=== PATIENT | female | born 1985 | race Caucasian/White ===

== ENCOUNTER 2018-03-14 13:50 | Emergency (ER) | payer BC ==
[2018-03-14] MEDS ORDERED: Lidocaine 1% 20 ML MDV INJECT ONE (14:19)
[2018-03-14] MEDS ORDERED: Diphtheria,Pertussis(Acell),Tetanus Vaccine 0.5 ML Syringe IM ONE (14:19)
--- NOTE | 2018-03-14 14:33 | EDM.PDOC ---
ED HPI GENERAL MEDICAL PROBLEM - General Chief Complaint: Laceration Stated Complaint: RIGHT POINTER FINGER CUT Time Seen by Provider: 03/14/18 13:53 Source of Information: Reports: Patient History Limitations: Reports: No Limitations - History of Present Illness INITIAL COMMENTS - FREE TEXT/NARRATIVE: HISTORY AND PHYSICAL: History of present illness: [Nely is a 32-year-old female here with finger laceration. She reports she was vacuuming out her car and must have cut her right pointer finger on something metal about 1 hour prior to arrival to the ED. She denies any fevers or chills. Tetanus status unknown. ] Review of systems: As per history of present illness and below otherwise all systems reviewed and negative. Past medical history: As per history of present illness and as reviewed below otherwise noncontributory. Surgical history: As per history of present illness and as reviewed below otherwise noncontributory. Social history: No reported history of drug or alcohol abuse. Family history: As per history of present illness and as reviewed below otherwise noncontributory. Physical exam: HEENT: Atraumatic, normocephalic, pupils reactive, negative for conjunctival pallor or scleral icterus Lungs: Clear to auscultation, breath sounds equal bilaterally, chest nontender. Extremities: 1.5 cm laceration just distal to the PIP joint of the right pointer finger on the dorsal aspect of the hand. negative for cords or calf pain. Neurovascular unremarkable. Neuro: Awake, alert, oriented. Cranial nerves II through XII unremarkable. Cerebellum unremarkable. Motor and sensory unremarkable throughout. Exam nonfocal. Notes: Diagnostics: ] Therapeutics: [tdap Laceration repair] Impression: [Laceration ] Plan: [#1 keep the area clean and dry as instructed #2 follow up for suture removal in 10-12 days #3 follow up with PCP #4 return to ED as needed as discussed] Definitive disposition and diagnosis as appropriate pending reevaluation and review of above. Right 2-Index finger Pain Score (Numeric/FACES): 5 - Related Data Allergies Allergy/AdvReac Type Severity Reaction Status Date / Time No Known Allergies Allergy Verified 03/14/18 14:16 Home Meds: Home Meds . [No Known Home Meds] 03/14/18 [History] Past Medical History - Past Health History Medical/Surgical History: Denies Medical/Surgical History - Infectious Disease History Infectious Disease History: Reports: None Social & Family History - Family History Family Medical History: Noncontributory - Tobacco Use Smoking Status *Q: Never Smoker - Caffeine Use Caffeine Use: Reports: Coffee, Soda - Recreational Drug Use Recreational Drug Use: No ED ROS GENERAL - Review of Systems Review Of Systems: ROS reveals no pertinent complaints other than HPI. ED EXAM, SKIN/RASH Exam: See Below (see dictation) ED SKIN PROCEDURES - Laceration/Wound Repair Right Finger Lac/Wound length In cm: 1.5 Appearance: Superficial Distal NVT: Neuro & Vascular Intact, No Tendon Injury Anesthetic Type: Local Local Anesthesia - Lidocaine (Xylocaine): 1% Plain Local Anesthetic Volume: 1cc Skin Prep: Saline Saline Irrigation (cc's): 250 Exploration/Debridement/Repair: Wound Explored, In a Bloodless Field, Explored to Base Closed with: Sutures Suture Size: 4-0 # of Sutures: 3 Suture Type: Prolene (procedure done by [employer] student under my supervision) , Interrupted, Simple Course - Vital Signs Last Recorded V/S: Last Vital Signs Temp 36.7 C 03/14/18 14:17 Pulse 90 03/14/18 14:17 Resp 16 03/14/18 14:17 BP 104/80 03/14/18 14:17 Pulse Ox 97 03/14/18 14:17 - Orders/Labs/Meds Orders: Active Orders 24 hr Category Date Time Status Vaccines to be Administered [RC] PER UNIT ROUTINE Care 03/14/18 14:19 Active Bacitracin [Bacitracin Oint 1 GM] Med 03/14/18 15:16 Once 1 dose TOP ONETIME ONE Medication Orders Bacitracin (Bacitracin Oint 1 Gm) 1 dose TOP ONETIME ONE Stop: 03/14/18 15:17 Meds: Medications Generic Name Dose Route Start Last Admin Trade Name Freq PRN Reason Stop Dose Admin Bacitracin 1 dose 03/14/18 15:16 Bacitracin Oint 1 Gm TOP 03/14/18 15:17 ONETIME ONE Discontinued Medications Generic Name Dose Route Start Last Admin Trade Name Freq PRN Reason Stop Dose Admin Diphtheria/Tetanus/Acell Pertussis 0.5 ml 03/14/18 14:19 03/14/18 14:36 Adacel IM 03/14/18 14:20 0.5 ml .ONCE ONE Administration Lidocaine HCl Confirm 03/14/18 14:26 03/14/18 14:35 Xylocaine-Mpf 1% Administered 03/14/18 14:27 Not Given Dose 5 mls @ as directed .ROUTE .STK-MED ONE Lidocaine HCl 20 ml 03/14/18 14:19 03/14/18 14:35 Xylocaine 1% INJECT 03/14/18 14:20 Not Given ONETIME ONE Lidocaine HCl 5 ml 03/14/18 14:34 03/14/18 14:36 Xylocaine-Mpf 1% INJECT 03/14/18 14:35 5 ml ONETIME ONE Administration Departure - Departure Time of Disposition: 15:20 Disposition: Home, Self-Care 01 Condition: Good Clinical Impression: Laceration - Discharge Information Referrals: Jg Carey MD [Primary Care Provider] - Forms: ED Department Discharge Additional Instructions: The following information is given to patients seen in the emergency department who are being discharged to home. This information is to outline your options for follow-up care. We provide all patients seen in our emergency department with a follow-up referral. The need for follow-up, as well as the timing and circumstances, are variable depending upon the specifics of your emergency department visit. If you don't have a primary care physician on staff, we will provide you with a referral. We always advise you to contact your personal physician following an emergency department visit to inform them of the circumstance of the visit and for follow-up with them and/or the need for any referrals to a consulting specialist. The emergency department will also refer you to a specialist when appropriate. This referral assures that you have the opportunity for follow-up care with a specialist. All of these measure are taken in an effort to provide you with optimal care, which includes your follow-up. Under all circumstances we always encourage you to contact your private physician who remains a resource for coordinating your care. When calling for follow-up care, please make the office aware that this follow-up is from your recent emergency room visit. If for any reason you are refused follow-up, please contact the [facility] Department at and asked to speak to the emergency department charge nurse. [facility] [address] [place] [phone] #1 keep the area clean and dry as instructed #2 follow up for suture removal in 10-12 days #3 follow up with PCP #4 return to ED as needed as discussed - My Orders Last 24 Hours: My Active Orders 03/14/18 15:16 Bacitracin [Bacitracin Oint 1 GM] 1 dose TOP ONETIME ONE - Assessment/Plan Last 24 Hours: My Active Orders 03/14/18 15:16 Bacitracin [Bacitracin Oint 1 GM] 1 dose TOP ONETIME ONE
[2018-03-14] MEDS ORDERED: Bacitracin Oint 1 GM U/D Packet TOP ONE (15:16)
== END 2018-03-14 15:29 | disposition home or self-care (01) ==
LOC: MW.ED 13:50
DX: S61.210A Laceration without foreign body of right index finger without damage to nail, initial encounter (principal); Z23 Encounter for immunization; W26.8XXA Contact with other sharp object(s), not elsewhere classified, initial encounter
CPT/HCPCS: 90471; 90715; 99282-25

== ENCOUNTER 2018-03-25 10:49 | Emergency (ER) | payer BC ==
--- NOTE | 2018-03-25 11:20 | EDM.PDOC ---
ED HPI GENERAL MEDICAL PROBLEM - General Chief Complaint: Upper Extremity Injury/Pain Stated Complaint: STITCHES REMOVAL AND GET FINGER CHECK Time Seen by Provider: 03/25/18 11:03 Source of Information: Reports: Patient History Limitations: Reports: No Limitations - History of Present Illness INITIAL COMMENTS - FREE TEXT/NARRATIVE: History of present illness: []Patients here for wound check and suture removal of a right index finger laceration done on March 14. Previous note states there was no tendon injury she does have swelling over the dorsal PIP joint and is concerned whether or not she may have had a tendon injury. Review of systems: As per history of present illness and below otherwise all systems reviewed and negative. Past medical history: As per history of present illness and as reviewed below otherwise noncontributory. Surgical history: As per history of present illness and as reviewed below otherwise noncontributory. Social history: No reported history of drug or alcohol abuse. Family history: As per history of present illness and as reviewed below otherwise noncontributory. Physical exam: General: Well developed, well nourished in NAD HEENT: Atraumatic, normocephalic, pupils reactive, negative for conjunctival pallor or scleral icterus, mucous membranes moist, throat clear, neck supple, nontender, trachea midline. Lungs: Clear to auscultation, breath sounds equal bilaterally, chest nontender. Heart: S1S2, regular, negative for clicks, rubs, or JVD. Abdomen: Soft, nondistended, nontender. Negative for masses or hepatosplenomegaly. Negative for costovertebral tenderness. Pelvis: Stable nontender. Genitourinary: Deferred. Rectal: Deferred. Extremities: Laceration of the right index finger healing well without signs of infection, there is swelling or further dorsal PIP joint, she is able to flex and extend PIP, DIP and MCP individually, sensation is intact negative for cords or calf pain. Neurovascular unremarkable. Neuro: Awake, alert, oriented. Cranial nerves II through XII unremarkable. Cerebellum unremarkable. Motor and sensory unremarkable throughout. Exam nonfocal. Diagnostics: [] Therapeutics: [] Impression: []Wound check, suture removal Plan: []Follow-up with Dr. Sanford Definitive disposition and diagnosis as appropriate pending reevaluation and review of above. Right 2-Index finger Pain Score (Numeric/FACES): 5 - Related Data Allergies Allergy/AdvReac Type Severity Reaction Status Date / Time No Known Allergies Allergy Verified 03/25/18 11:03 Home Meds: Home Meds . [No Known Home Meds] 03/14/18 [History] Past Medical History - Past Health History Medical/Surgical History: Denies Medical/Surgical History - Infectious Disease History Infectious Disease History: Reports: None Social & Family History - Family History Family Medical History: Noncontributory - Tobacco Use Smoking Status *Q: Never Smoker - Caffeine Use Caffeine Use: Reports: Coffee - Recreational Drug Use Recreational Drug Use: No ED ROS GENERAL - Review of Systems Review Of Systems: See Below (See history of present illness) ED EXAM, SKIN/RASH Exam: See Below (See history of present illness) Course - Vital Signs Last Recorded V/S: Last Vital Signs Temp 97.7 F 03/25/18 10:59 Pulse 76 03/25/18 10:59 Resp 16 03/25/18 10:59 BP 109/62 03/25/18 10:59 Pulse Ox 99 03/25/18 10:59 Departure - Departure Time of Disposition: 11:18 Disposition: Home, Self-Care 01 Condition: Good Clinical Impression: Visit for wound check - Discharge Information *PRESCRIPTION DRUG MONITORING PROGRAM REVIEWED*: Not Applicable *COPY OF PRESCRIPTION DRUG MONITORING REPORT IN PATIENT [place]: Not Applicable Referrals: PCP,None [Primary Care Provider] - Kay Sanford MD [Physician] - (next available ) Additional Instructions: The following information is given to patients seen in the emergency department who are being discharged to home. This information is to outline your options for follow-up care. We provide all patients seen in our emergency department with a follow-up referral. The need for follow-up, as well as the timing and circumstances, are variable depending upon the specifics of your emergency department visit. If you don't have a primary care physician on staff, we will provide you with a referral. We always advise you to contact your personal physician following an emergency department visit to inform them of the circumstance of the visit and for follow-up with them and/or the need for any referrals to a consulting specialist. The emergency department will also refer you to a specialist when appropriate. This referral assures that you have the opportunity for follow-up care with a specialist. All of these measure are taken in an effort to provide you with optimal care, which includes your follow-up. Under all circumstances we always encourage you to contact your private physician who remains a resource for coordinating your care. When calling for follow-up care, please make the office aware that this follow-up is from your recent emergency room visit. If for any reason you are refused follow-up, please contact the [facility] Emergency Department at and asked to speak to the emergency department charge nurse. [facility] [address] [place] [address], [address] [place] [address]
== END 2018-03-25 11:32 | disposition home or self-care (01) ==
LOC: MW.ED 10:49
DX: S61.210D Laceration without foreign body of right index finger without damage to nail, subsequent encounter (principal); W26.8XXD Contact with other sharp object(s), not elsewhere classified, subsequent encounter
CPT/HCPCS: 99282

== ENCOUNTER → 2024-04-01 | Day surgery (SDC) | payer BC ==
[2024-03-31 10:50] LABS: HEMATOCRIT 39.6 % (37.0-47.0); HEMOGLOBIN 13.5 g/dL (12.0-16.0); MEAN CORPUSCULAR HEMOGLOBIN 29.8 pg (28.0-32.0); MEAN CORPUSCULAR HGB CONC 34.1 g/dL (32.0-36.0); MEAN CORPUSCULAR VOLUME 87.4 fL (83.0-99.0); MEAN PLATELET VOLUME 11.3 fL (9.4-12.3); PLATELET COUNT,PLT 229 K/uL (150-400); RED BLOOD CELL COUNT 4.53 M/uL (4.10-5.30); WHITE BLOOD CELL COUNT,WBC 5.87 K/uL (3.9-11.3)
[2024-03-31 11:35] LABS: CALCIUM 9.2 mg/dL (8.5-10.1); CARBON DIOXIDE,CO2 28.6 mmol/L (21.0-32.0); CREATININE 0.8 mg/dL (0.6-1.0); EST CRCL DRUG DOSING (CG) 92.72 mL/min; POTASSIUM,K 3.7 mmol/L (3.5-5.1)
[~2024-04-01] MED LIST: Acetaminophen/oxyCODONE 325-5 MG Tab PO PRN; Albuterol 0.083% 2.5 MG/3 ML Neb Soln NEB PRN; Bupivacaine 0.25% 10 ML SDV ONE; Bupivacaine 0.25% 30 ML SDV ONE; Dexamethasone 4 MG/ML 5 ML MDV ONE; Fluorescein 5 ML Vial ONE; HYDROmorphone 1 MG/ML Syringe IVPUSH PRN; Ketorolac 30 MG/ML SDV ONE; Lidocaine 2% 5 ML SDV ONE; Methylene Blue 100 MG/10 ML SDV ONE; Metoclopramide 10 MG/2 ML SDV IVPUSH PRN; Metoclopramide 10 MG/2 ML SDV ONE; Morphine 10 MG/ML SDV ONE; Morphine 2 MG/ML SYRINGE IVPUSH PRN; Morphine 4 MG/ML Syringe IVPUSH PRN; Naloxone 0.4 MG/ML SDV IVPUSH PRN; Ondansetron 4 MG/2 ML SDV IVPUSH PRN; Ondansetron 4 MG/2 ML SDV ONE; Phenylephrine HCl In 0.9% NaCl 1 MG/10 ML Syringe ONE; Promethazine 25 MG/ML SDV IM PRN; Rocuronium Bromide 50 MG/5 ML Syringe ONE; Ropivacaine 0.5% 5 MG/ML 30 ML SDV ONE; Sugammadex Sodium 200 MG/2 ML VIAL IV ONE; Tranexamic Acid 1,000 MG/10 ML Vial ONE; Water For Injection, Sterile 20 ML ONE; ceFAZolin 2 GM Vial ONE; dexmedeTOMIDine HCl 200 MCG/2 ML SDV ONE; droPERidol 5 MG/2 ML SDV IVPUSH PRN; fentaNYL 100 MCG/2 ML SDV ONE; fentaNYL 50 MCG/ML SDV IVPUSH PRN; propofoL 100 ML ONE
[2024-04-01] MEDS: Scopalamine 1mg/3day Transdermal Patch TOP ONE (09:00)
[2024-04-01] MEDS: Lactated Ringers 1,000 ML IV SCH (09:05)
[2024-04-01] MEDS: oxyCODONE 5 MG Tab PO PRN (17:10)
[2024-04-01] MEDS: Acetaminophen 1,000 MG in Premix Bag 1 BAG IV SCH (18:23)
[2024-04-02 05:51] LABS: BASOPHILS ABSOLUTE AUTO 0.01 K/uL (0.00-0.20); BASOPHILS PERCENT AUTO 0.1 % (0.0-1.0); EOSINOPHILS ABSOLUTE AUTO 0.01 K/uL (0.00-0.45); EOSINOPHILS PERCENT AUTO 0.1 % (0.0-6.0); HEMATOCRIT 33.2 % (37.0-47.0); HEMOGLOBIN 11.1 g/dL (12.0-16.0); IMMATURE GRAN ABSOLUTE AUTO 0.04 K/uL (0.00-0.05); IMMATURE GRAN PERCENT AUTO 0.3 % (0.0-0.4); LYMPHOCYTES PERCENT AUTO 9.1 % (24.0-44.0); MEAN CORPUSCULAR HEMOGLOBIN 29.8 pg (28.0-32.0); MEAN CORPUSCULAR HGB CONC 33.4 g/dL (32.0-36.0); MEAN PLATELET VOLUME 11.9 fL (9.4-12.3); MONOCYTES PERCENT AUTO 6.1 % (0.0-8.0); NEUTROPHILS ABSOLUTE AUTO 11.13 K/uL (1.80-7.70); NEUTROPHILS PERCENT AUTO 84.3 % (41.0-71.0); PLATELET COUNT,PLT 208 K/uL (150-400); RED BLOOD CELL COUNT 3.73 M/uL (4.10-5.30); WHITE BLOOD CELL COUNT,WBC 13.19 K/uL (3.9-11.3)
[2024-04-02 06:13] LABS: CALCIUM 8.3 mg/dL (8.5-10.1); CREATININE 0.9 mg/dL (0.6-1.0); EST CRCL DRUG DOSING (CG) 82.42 mL/min; POTASSIUM,K 3.9 mmol/L (3.5-5.1)
== END | disposition home or self-care (01) ==
LOC: MW.SDS 08:44 → UNDOADMOB 14:08 → MW.MS 14:08 → UNDODISOB 04-02 12:10
PROVIDERS: ATTEND Obstetrics & Gynecology
DX: N80.03 Adenomyosis of the uterus (principal); D25.0 Submucous leiomyoma of uterus; D25.2 Subserosal leiomyoma of uterus; N83.8 Other noninflammatory disorders of ovary, fallopian tube and broad ligament; D64.9 Anemia, unspecified; F41.9 Anxiety disorder, unspecified; Z79.899 Other long term (current) drug therapy
CPT/HCPCS: 36415; 58552; 80048; 84703; 85027; 86850; 86900; 86901; A9270; J0131; J0665; J0690; J1100; J1885; J2270; J2371; J2704; J2765; J2795; J3010; J3490; J7120; Q9968; 00944; 64999; 85025; J2405